=== PATIENT | female | born 1965 | race Caucasian/White ===

== ENCOUNTER 2018-10-03 07:58 | Observation (INO) | payer BC ==
[2018-10-03 08:38] LABS: #Basophils 0.1 thou/uL (0.0-0.2); #Eosinphils 0.1 thou/uL (0.0-0.7); #Lymphocytes 2.1 thou/uL (1.20-3.40); #Monocytes 0.4 thou/uL (0.11-0.59); %Basophils 1.3 % (0.0-1.0); %Eosinophils 1.8 % (0.0-10.0); %Lymphocytes 37.2 % (21.0-51.0); %Monocytes 6.5 % (0.0-10.0); %Neutrophils 53.1 % (42.0-75.0); Hemoglobin 14.8 g/dL (12.0-16.0); Mean Corpuscular HGB CONC 32.9 g/dL (32.0-36.0); Mean Corpuscular Hemoglobin 28.5 pg (27.0-31.0); Mean Corpuscular Volume 86.9 fL (78.0-98.0); Mean Platelet Volume 10.3 fL (7.4-10.4); Platelet Count 175 thou/uL (130-400); RBC Distribution Width 11.7 % (11.5-14.5); Red Blood Cell (RBC) Count 5.19 mill/uL (4.20-5.40); White Blood Cell (WBC) Count 5.6 thou/uL (4.8-10.8)
[2018-10-03 09:04] LABS: ALT (SGPT) 50 U/L (8-55); AST (SGOT) 26 U/L (5-34); Albumin 4.2 g/dL (3.5-5.0); Alkaline Phosphatase 96 U/L (40-150); Anion Gap 13 mmol/L (10-20); BUN (Urea Nitrogen) 23 mg/dL (9.8-20.1); Bilirubin, Total 0.8 mg/dL (0.2-1.2); Calc. Creatinine Clearance 0 mL/min (70-130); Calcium 9.6 mg/dL (7.8-10.44); Carbon Dioxide 28 mmol/L (22-29); Chloride 99 mmol/L (98-107); Estimated GFR-MDRD 68; Globulin 3.2 g/dL (2.4-3.5); Glucose 292 mg/dL (70-105); Protein, Total 7.4 g/dL (6.0-8.3); Sodium 136 mmol/L (136-145)
--- NOTE | 2018-10-03 09:04 | RAD ---
PORTABLE CHEST ONE VIEW: 10/03/2018 8:08 a.m. HISTORY: Chest pain and hypertension. COMPARISON: 09/14/2017 FINDINGS: The heart size is normal. The lungs are well expanded without focal areas of consolidation, pneumoth oraces, or pleural effusions. IMPRESSION: No radiographic evidence of acute cardiopulmonary process. POS: SHERWINH
[2018-10-03] MEDS ORDERED: Nitroglycerin 0.4 MG TAB 1 EACH ONE (10:25)
[2018-10-03] MEDS ORDERED: Aspirin Chewable 81 MG TAB ONE (10:26)
[2018-10-03] MEDS ORDERED: Dextrose 5% in Water 1,000 ML IV PRN (11:57)
[2018-10-03] MEDS ORDERED: Dextrose 50% Abboject 50 ML SYRINGE SLOW IVP PRN (11:57)
[2018-10-03] MEDS ORDERED: Acetaminophen 500 MG TAB PO PRN (11:57)
[2018-10-03] MEDS ORDERED: hydrALAZINE 20 MG/ML VIAL SLOW IVP PRN (11:57)
[2018-10-03] MEDS ORDERED: Ondansetron PF 4 MG/2 ML Vial IVP PRN (11:57)
[2018-10-03] MEDS ORDERED: HumaLOG 300 UNITS/3 ML VIAL SC PRN ×2 (11:57)
[2018-10-03] MEDS ORDERED: Ondansetron ODT 4 MG TAB PO PRN (11:57)
[2018-10-03 12:17] LABS: Troponin I Less than 0.010 ng/mL (< 0.028)
[2018-10-03 15:20] LABS: Troponin I Less than 0.010 ng/mL (< 0.028)
[2018-10-03 15:37] VITALS: BMI 35.6
--- NOTE | 2018-10-03 16:35 | HP ---
PRIMARY CARE PROVIDER: [facility]. CHIEF COMPLAINT: Chest pain. HISTORY OF PRESENT ILLNESS: This is a 53-year-old female, who presents to [facility] Emergency Department complaining of intermittent central chest pressure over the last 2 to 3 months. The patient has noted increasing symptoms with fatigue and pressure-like sensation over the sternum. The patient admits to feeling fatigued, nauseous, but no shortness of breath, fever, cough, congestion, or recent trauma. The patient admits to history of hypertension, recently changed to hydrochlorothiazide from previous lisinopril. The patient states her blood pressure has been somewhat erratic and uncontrolled. The patient also admits to a four year history of diabetes mellitus type 2, on oral hypoglycemics with marginal control. The patient is unsure of her A1c level, but does states she attempts dietary management. The patient states she has a family history of early coronary artery disease in her grandmother. The patient denied any recent illness, congestion, or exposure history. The patient denies any fever or recent antibiotic exposure. The patient does admit to some radiation to the left upper extremity, rated the pain as 3/10, and usually relieved without specific intervention. In the emergency room, the patient received nitroglycerin 0.4 mg sublingually as well as aspirin 324 mg. Initial workup was essentially unrevealing. PAST MEDICAL HISTORY: 1. Hypertension, marginal control. 2. Diabetes mellitus type 2 x4 years with oral hypoglycemics. 3. History of DVT while on control pills. 4. Question of asthma without chronic use of inhalers. PAST SURGICAL HISTORY: Status post section x1. CURRENT MEDICATIONS: 1. Hydrochlorothiazide. 2. Metformin 500 mg p.o. b.i.d. 3. Glyburide 2 mg p.o. daily. ALLERGIES: PHENERGAN CAUSING ALTERED MENTAL STATUS. FAMILY HISTORY: Grandmother with early coronary artery disease. SOCIAL HISTORY: . No current alcohol, tobacco, or illicit drug use. 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 REVIEW OF SYSTEMS: CONSTITUTIONAL: Negative for weight loss or gain, ability to conduct usual activities. SKIN: Negative for rash, itching. EYES: Negative for double vision, pain. ENT/MOUTH: Negative for nose bleeding, neck stiffness, pain, tenderness. CARDIOVASCULAR: Negative for palpitations, dyspnea on exertion, orthopnea. RESPIRATORY: Negative for shortness of breath, wheezing, cough, hemoptysis, fever or night sweats. GASTROINTESTINAL: Negative for poor appetite, abdominal pain, heartburn, nausea, vomiting, constipation, or diarrhea. GENITOURINARY: Negative for urgency, frequency, dysuria, nocturia. MUSCULOSKELETAL: Negative for pain, swelling. NEUROLOGIC/PSYCHIATRIC: Negative for anxiety, depression. ALLERGY/IMMUNOLOGIC: Negative for skin rash, bleeding tendency. Otherwise, negative except as stated per HPI. PHYSICAL EXAMINATION: VITAL SIGNS: On admission, blood pressure 127/87, pulse 92, respiratory rate 14, temperature 97.6 degrees Fahrenheit, and O2 saturation 94% on room air. GENERAL APPEARANCE: This is a 53-year-old female, alert and oriented x3, pleasant, conversant, in no acute distress. HEENT: Pupils are equal, round, reactive to light and accommodation. Extraocular muscles are intact. No scleral icterus. No conjunctival injection. Nares patent. OP is clear. Teeth in good repair. NECK: Supple. No cervical adenopathy. No thyromegaly. No carotid bruits. No JVD appreciated. Cervical spine with full active and passive range of motion. No meningeal signs noted. CHEST: Lungs are clear to auscultation bilaterally. CARDIOVASCULAR: S1 and S2 without noted murmur, rub, or gallop. ABDOMEN: Rounded, soft, nontender, and nondistended. Bowel sounds are positive in all 4 quadrants. There is no hepatosplenomegaly. No abdominal bruits. No rebound or guarding appreciated. EXTREMITIES: Warm and dry with fair turgor. Mild edema to the lower extremities bilaterally. Pulses palpable distally at the dorsalis pedis, posterior tibial, and popliteal arteries bilaterally. Capillary refill less than 2 seconds. NEUROLOGIC: Cranial nerves 2 through 12 are grossly intact. No focal or lateralizing signs appreciated. PERTINENT LABORATORY DATA AND X-RAY FINDINGS: Sodium 136, potassium 4.0, chloride 99, CO2 of 28, BUN 23, creatinine 0.87, estimated GFR of 68, glucose 292, calcium 9.6. LFTs within normal limits. Troponin I negative x1. CBC within normal limits. D-dimer less than 0.27. Portable chest x-ray dated 10/03/2018, showed no acute cardiopulmonary process. EKG dated 10/03/2018, by my interpretation shows sinus mechanism with heart rates in the 90s. Normal R-wave progression noted in the precordial leads. Normal axis. No acute ST-T wave changes appreciated. ASSESSMENT AND PLAN: 1. Chest pain. The patient will be observed on the telemetry unit. We will proceed with exercise Cardiolite stress testing. Check fasting lipid profile. 2. Gastroesophageal reflux. Suspected. Start Pepcid 20 mg p.o. b.i.d. 3. Hypertension. Continue serial blood pressure monitoring. Confirm home hydrochlorothiazide dosing. The patient may need additional titration of her antihypertensive regimen. 4. Diabetes mellitus type 2. Questionable control currently. Insulin sliding scale for reflexive coverage. ADA diet. Serial Accu-Cheks a.c. and at bedtime. The patient may need additional titration of her diabetic regimen on an ongoing basis after discharge. 5. Prophylaxis. SCDs while in bed. Pepcid 20 mg p.o. b.i.d. 6. Code status is full. Surrogate medical decision maker is the patient's spouse. Job ID: [id number]
[2018-10-03] MEDS: Famotidine 20 MG TAB PO SCH (20:08)
[2018-10-04 05:56] LABS: Band 2 % (5-11); Eosinophils 3 % (0-10); Hemoglobin 14.4 g/dL (12.0-16.0); Lymphocytes 56 % (21-51); MDiff Complete? YES; Mean Corpuscular HGB CONC 33.5 g/dL (32.0-36.0); Mean Corpuscular Hemoglobin 28.8 pg (27.0-31.0); Mean Corpuscular Volume 85.9 fL (78.0-98.0); Mean Platelet Volume 10.3 fL (7.4-10.4); Monocytes 2 % (0-10); Neutrophil 37 % (42-75); Platelet Count 157 thou/uL (130-400); RBC Distribution Width 11.8 % (11.5-14.5); Red Blood Cell (RBC) Count 4.98 mill/uL (4.20-5.40); White Blood Cell (WBC) Count 4.4 thou/uL (4.8-10.8)
[2018-10-04 06:00] LABS: Anion Gap 15 mmol/L (10-20); BUN (Urea Nitrogen) 19 mg/dL (9.8-20.1); Calc. Creatinine Clearance 130 mL/min (70-130); Calcium 9.3 mg/dL (7.8-10.44); Carbon Dioxide 23 mmol/L (22-29); Cardiac Risk 4.8 (Less than 4.5); Chloride 102 mmol/L (98-107); Cholesterol 183 mg/dl (< 200 Desired); Estimated GFR-MDRD 78; Glucose 170 mg/dL (70-105); HDL Cholesterol 38 mg/dL (>60 Neg Risk); LDL Cholesterol, Calculated 117 mg/dL; Potassium 4.1 mmol/L (3.5-5.1); Sodium 136 mmol/L (136-145); Triglycerides 138 mg/dL (Less than 150)
[2018-10-04 08:22] VITALS: BP 136/84; TEMP 97.4
[2018-10-04] MEDS: Famotidine 20 MG TAB PO SCH (10:55)
--- NOTE | 2018-10-04 14:28 | DIS ---
DATE OF ADMISSION: 10/03/2018 DATE OF DISCHARGE: 10/04/2018 PRIMARY CARE PHYSICIAN: None. DISPOSITION: Discharged home. FINAL DIAGNOSES: Noncardiac chest pain, hypertension, and diabetes mellitus type 2. DISCHARGE MEDICATIONS: Same as home medications, 1. Metformin 500 b.i.d. 2. Glimepiride 4 mg a day. 3. Hydrochlorothiazide 25 mg a day. 4. Lisinopril 40 mg a day. ALLERGIES: ALLERGIC TO PHENERGAN. DIET: Diabetic. PENDING AT TIME OF DISCHARGE: Nothing. CODE STATUS: Full. HOSPITAL COURSE: The patient was admitted with months of pressured chest pain. EKG was unrevealing. CBC was unremarkable. Comprehensive metabolic profile was unremarkable. Cardiac enzymes normal x3. Nuclear medicine cardiac stress test normal. Cardiorespiratory exam normal. Blood pressure 136/84, pulse 85, and respirations 16. The situation has been discussed with the patient. She has been advised that she needs to find a PCP for further evaluation as an outpatient. She has been getting her medications fixed at the [facility]. CONSULTATIONS: None. PROCEDURES: None. Job ID: [id number]
--- NOTE | 2018-10-04 14:55 | NM ---
MYOCARDIAL PERFUSION EVALUATION: INDICATION: Chest pain. Hypertension. Diabetes. History of deep venous thrombosis. RADIOPHARMACEUTICAL: 31.1 mCi technetium-99m sestamibi IV with stress and 28 mCi technetium-99m sestamibi IV with rest. FINDINGS: No reversible or myocardial perfusion defect is evident when comparing the rest and stress images. No rmal wall motion and thickening. Estimated LVEF is 79%. IMPRESSION: Normal myocardial perfusion evaluation. POS: JOSE
--- NOTE | 2018-10-06 16:06 | EKG ---
Test Reason : Blood Pressure : / mmHG Vent. Rate : 097 BPM Atrial Rate : 097 BPM P-R Int : 128 ms QRS Dur : 084 ms QT Int : 326 ms P-R-T Axes : 034 022 033 degrees QTc Int : 414 ms Normal sinus rhythm Possible Left atrial enlargement Borderline ECG Confirmed by MAI FABIAN DO ([id number]), magazine editor MORIS DORSEY ([id number]) on 10/06/2018 4:06:33 PM Referred By: Confirmed By:MAI FABIAN DO
== END 2018-10-04 14:51 | disposition home or self-care (01) ==
LOC: ERS 07:58 → ERHOLD 10:29 → 2SW 14:23
PROVIDERS: ADMIT Family Medicine; ATTEND Family Medicine
DX: R07.89 Other chest pain (principal); I10 Essential (primary) hypertension; E11.9 Type 2 diabetes mellitus without complications; Z86.718 Personal history of other venous thrombosis and embolism; Z88.8 Allergy status to other drugs, medicaments and biological substances; Z79.84 Long term (current) use of oral hypoglycemic drugs; Z79.899 Other long term (current) drug therapy; Z98.890 Other specified postprocedural states
CPT/HCPCS: 36415; 36416; 71045; 78452; 80048; 80053; 80061; 84484; 85007; 85025; 85027; 85379; 93005; 93017; 94760; A9500; G0378

== ENCOUNTER 2021-09-03 09:04 | Outpatient (CLI) | payer BC | END 2021-09-03 09:05 | disposition home or self-care (01) | LOC: BICRAD 09:04 | PROVIDERS: ATTEND Family Medicine | DX: J40 Bronchitis, not specified as acute or chronic (principal) | CPT/HCPCS: 71046 ==